=== PATIENT | male | born 1990 | race Caucasian/White ===

== ENCOUNTER 2017-09-03 12:56 | Emergency (ER) | payer OTHER ==
[2017-09-03 14:34] LABS: RBC URINE 244 /hpf (0-3); URINE BILIRUBIN NEGATIVE (NEGATIVE); URINE BLOOD 2+ (NEGATIVE); URINE COLOR Yellow (YELLOW); URINE GLUCOSE (UA) NORMAL (Normal); URINE KETONE NEGATIVE (NEGATIVE); URINE LEUKOCYTE ESTERASE NEG Leu/uL (Negative); URINE PROTEIN NEGATIVE (NEGATIVE); URINE UROBILINOGEN NORMAL mg/dL (0.2-1.0); WBC URINE < 1 /hpf (0-5)
--- NOTE | 2017-09-03 15:02 | C.PDOC ---
History Of Present Illness 27 year old male presents to the ED c/o right flank pain radiating towards his right groin which woke him from sleep [employer]. Patient has a Hx of renal colic with similar symptoms and has passed many stones before. Otherwise, Patient denies fever, nausea, vomit, diarrhea, dysuria, hematuria. Time Seen by Provider: 09/03/17 13:51 Chief Complaint (Nursing): Groin Pain History Per: Patient History/Exam Limitations: no limitations Onset/Duration Of Symptoms: Hrs Current Symptoms Are (Timing): Still Present Location Of Pain/Discomfort: Other (Right flank ) Radiation Of Pain To:: Other (Right Groin) Quality Of Discomfort: "Pain" Associated Symptoms: denies: Fever, Nausea, Vomiting, Diarrhea, Urinary Symptoms Recent travel outside of the [place]: No Additional History Per: Patient Past Medical History Reviewed: Historical Data, Nursing Documentation, Vital Signs Vital Signs: Last Vital Signs Temp 97.4 F L 09/03/17 15:11 Pulse 64 09/03/17 15:11 Resp 16 09/03/17 15:11 BP 130/82 09/03/17 15:11 Pulse Ox 100 09/03/17 15:11 - Medical History PMH: No Chronic Diseases Surgical History: No Surg Hx Family History: States: Unknown Family Hx - Social History Hx Alcohol Use: No Hx Substance Use: No - Immunization History Hx Tetanus Toxoid Vaccination: No Hx Influenza Vaccination: No Hx Pneumococcal Vaccination: No Review Of Systems Constitutional: Negative for: Fever, Chills Cardiovascular: Negative for: Chest Pain, Palpitations Respiratory: Negative for: Cough, Shortness of Breath Gastrointestinal: Positive for: Abdominal Pain (Right flank, right groin). Negative for: Nausea, Vomiting Genitourinary: Negative for: Dysuria, Hematuria Musculoskeletal: Positive for: Leg Pain (Right groin) Skin: Negative for: Rash Neurological: Negative for: Weakness, Numbness Physical Exam - Physical Exam Appears: Non-toxic, No Acute Distress, Other (Thin male) Skin: Normal Color, Warm, Dry Head: Atraumatic, Normacephalic Eye(s): bilateral: PERRL Nose: No Discharge, No Deformity Oral Mucosa: Moist, No Drooling Throat: Normal, No Erythema, No Exudate Neck: Normal ROM, Supple Chest: Symmetrical Cardiovascular: Rhythm Regular, No Murmur Respiratory: Normal Breath Sounds, No Rales, No Rhonchi, No Wheezing Gastrointestinal/Abdominal: Soft, No Tenderness, No Guarding, No Rebound Back: No CVA Tenderness Extremity: Normal ROM, No Deformity, No Swelling Neurological/Psych: Oriented x3, Normal Speech, Normal Cognition Gait: Steady ED Course And Treatment - Laboratory Results Lab Interpretation: Abnormal (UA 244 RBC's) O2 Sat by Pulse Oximetry: 98 (On RA) Pulse Ox Interpretation: Normal Progress Note: motrin 600 PO, PO fluids Reevaluation Time: 15:01 Reassessment Condition: Improved Medical Decision Making Medical Decision Making: probably passed R ureteral stone, UA with RBC's c/w same. asymptomatic on arrival and no R CVA tenderness argues against trapped stone and hydronephrosis and more likely passed stone. Pt deferred w/u with informed consent. Disposition Doctor Will See Patient In The: Office Counseled Patient/Family Regarding: Studies Performed, Diagnosis - Disposition Referrals: Declan Dc Jr., MD [Staff Provider] - Disposition: HOME/ ROUTINE Disposition Time: 15:02 Condition: GOOD Additional Instructions: drink plenty of water Motrin 400-600 mg every 6 hours as needed for dull achy pain Follow-up with Dr. Dc- Urologist- as needed Dr. Sera Niño for your Primary Care needs. Instructions: Renal Colic (ED) Forms: [facility] (Persian) - Clinical Impression Clinical Impression: Renal colic on right side - Scribe Statement The provider has reviewed the documentation as recorded by the Scribe Ryne Mackey All medical record entries made by the Scribe were at my direction and personally dictated by me. I have reviewed the chart and agree that the record accurately reflects my personal performance of the history, physical exam, medical decision making, and the department course for this patient. I have also personally directed, reviewed, and agree with the discharge instructions and disposition.
[2017-09-03 15:12] VITALS: BP 130/82; PULSE 64; RESP 16; TEMP 97.4
[2017-09-03 21:46] VITALS: O2SAT 98
== END 2017-09-03 15:13 | disposition home or self-care (01) ==
LOC: C.ER 12:56
DX: N23 Unspecified renal colic (principal)